=== PATIENT | female | born 1960 | race Caucasian/White ===

== ENCOUNTER → 2016-09-03 | Outpatient (CLI) | payer MEDICARE ==
[~2016-09-03] MED LIST: ADVAIR 250/5028 PUFF IN; CLARITIN10 MG OR; EFFEXOR XR150 MG PO; LEVAQUIN500 MG PO; PREDNISONE 20MG20 MG PO; PRILOSEC20 MG PO
--- NOTE | 2016-09-09 08:15 | RADIOLOGY REPORT PS360 ---
DIG MAMM-SCREEN [facility] W/CAD CAD Screening COMPARISON: Digital mammograms 07/11/2014 and 08/09/2015 INDICATION: There is a history of breast cancer patient's paternal aunt diagnosed in her 70s and patient's paternal cousin diagnosed in her 30s. There is been previous lumpectomy with follow-up radiation therapy right breast TECHNIQUE: Standard CC and MLO images were obtained. R2 CAD reviewed. FINDINGS: Prominent diffuse heterogenic fibroglandular densities are seen in the central portions of both breasts. Surgical clips with mild post lumpectomy scarring is seen upper inner quadrant right breast. This is stable. There is no new or suspicious lesion in either breast and there are no suspicious microcalcifications. There are small fatty replaced nodes in each axilla. IMPRESSION: Stable exam with no suspicious lesion seen recommend yearly follow-up BI-RADS CATEGORY: 2_Benign RECOMMENDED FOLLOWUP: 12M 12 MONTH FOLLOW-UP (A letter has been sent to the patient regarding results of the study.)
== END ==
LOC: RAD 10:51
DX: Z12.31 Encounter for screening mammogram for malignant neoplasm of breast (principal)
CPT/HCPCS: G0202

== ENCOUNTER 2017-03-17 11:32 | Day surgery (SDC) | payer MEDICARE ==
--- NOTE | 2017-03-17 15:27 | Operative Note ---
Colonoscopy ([facility]) Procedure date: 03/17/17 Date of : 60 Procedure:Colonoscopy Colonoscopy Indications: Mrs. Herrera is a 56-year-old female who is here for initial screening colonoscopy. 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 She also has a history of breast cancer. The patient previously had a Erinn fundoplication. She reports no abdominal pain, weight loss, change in her bowel habits or rectal bleeding. She reports no family history of colon cancer. She has had prior cholecystectomy and appendectomy. She also had a prior hysterectomy. Performing Provider: Frida Singer MD Referrring Provider: Feliciano Ramirez M.D./[facility] Sedation: Fentanyl 200 mg IV/Versed 8 mg IV Procedure: Prior to the procedure, a history and physical exam was performed, and patient medications and allergies were reviewed. The risks and benefits of the procedure and the sedation options and risks were discussed with the patient. All questions were answered and informed consent was obtained. Patient identification and proposed procedure were verified by the physician and the nurse. The patient was placed in a left lateral decubitus position. Throughout the procedure, the patient's blood pressure, pulse, and oxygen saturations were monitored continuously. Findings: On digital rectal examination there was normal rectal tone. There were no external hemorrhoids. The colonoscope was introduced through the anal canal to the rectum and advanced to the cecum. The ileocecal valve and appendiceal orifice were identified. The scope was advanced a short distance into the ileum which appeared grossly normal. The scope was then withdrawn into the colon. The cecum, ascending and transverse colon and mucosa were grossly normal. There were scattered diverticuli throughout the descending and sigmoid colon (LEFT colon). There was some pericolonic adhesions around the sigmoid colon and some colonic redundancy. The rectum itself was normal. Upon retroflexion within the rectum there were grade 1 internal hemorrhoids. Impressions: 1. Left-sided diverticulosis 2. Grade 1 internal hemorrhoids Recommendations: The patient will not require screening/surveillance colonoscopy again for 10 years by ACS guidelines. I would encourage fiber supplementation on a long-term daily maintenance basis. Complications: None EBL (ml): 0 at 3657
[2017-03-17 16:02] VITALS: BP 114/91
== END 2017-03-17 15:58 | disposition home or self-care (01) ==
LOC: SDC 11:32
PROVIDERS: Internal Medicine Gastroenterology
PROC: 0DJD8ZZ Inspection of Lower Intestinal Tract, Via Natural or Artificial Opening Endoscopic (ICD-10-PCS; principal; 2017-03-17 13:30)
DX: Z12.11 Encounter for screening for malignant neoplasm of colon (principal); Z85.3 Personal history of malignant neoplasm of breast; Z85.830 Personal history of malignant neoplasm of bone